=== PATIENT | female | born 1950 | race Caucasian/White ===

== ENCOUNTER 2016-11-26 11:14 | Emergency (ER) | payer BC, MEDICARE ==
--- NOTE | 2016-11-26 12:18 | Emergency Department Record ---
Anxiety - General Chief Complaint: Anxiety Stated Complaint: ANXIETY Time Seen by Provider: 11/26/16 11:55 Source: Patient Mode of Arrival: Ambulatory Limitations: No limitations - History of Present Illness Initial Comments: pt states she is either anxious or having hot flashes as she frequently feels hot. she states she has had a lot of funerals lately. Complaint: Anxiety Onset/Timin -: Week(s) Symptoms: Dry mouth, Other Place: Home Previous History of Same: Yes Severity: Moderate Quality: Constant Provoking factors: Emotional stress, Recent /illness of family member Improves With: Medication Associated symptoms: Other - Related Data Home Medications: Home Medications Medication Instructions Recorded Confirmed Last Taken Alprazolam [Xanax] 0.5 mg PO DAILY PRN 10/16/13 11/26/16 11/26/16 Ferrous Sulfate [Iron] 325 mg PO DAILY 10/16/13 11/26/16 11/26/16 Imipramine HCl [Tofranil] 100 mg PO QHS 10/16/13 11/26/16 11/25/16 Allergies/Adverse Reactions: Allergies Allergy/AdvReac Type Severity Reaction Status Date / Time No Known Drug Allergies Allergy Verified 11/26/16 11:17 Travel Screening - Travel/Exposure Within Last 30 Days Have you traveled within the last 30 days?: Yes Location Detail:: [place] - Travel/Exposure Within Last Year Have you traveled outside the [place] in the last year?: No - Additonal Travel Details Have you been exposed to anyone with a communicable illness?: No - Travel Symptoms Symptom Screening: None Review of Systems Reviewed: No additional complaints except as noted below Constitutional: Reports: As per HPI. Denies: Chills, Fever, Malaise, Night sweats, Weakness, Weight change Eyes: Reports: As per HPI. Denies: Eye discharge, Eye pain, Photophobia, Vision change ENT: Reports: As per HPI. Denies: Congestion, Dental pain, Ear pain, Epistaxis , Hearing loss, Throat pain Respiratory: Reports: As per HPI. Denies: Cough, Dyspnea, Hemoptysis, Stridor, Wheezes Cardiovascular: Reports: As per HPI. Denies: Arrhythmia, Chest pain, Dyspnea on exertion, Edema, Murmurs, Orthopnea, Palpitations, Paroxysmal nocturnal dyspnea, Rheumatic Fever, Syncope Endocrine: Reports: As per HPI. Denies: Fatigue, Heat or cold intolerance, Polydipsia, Polyuria Gastrointestinal: Reports: As per HPI. Denies: Abdominal pain, Constipation, Diarrhea, Hematemesis, Hematochezia, Melena, Nausea, Vomiting Genitourinary: Reports: As per HPI. Denies: Abnormal menses, Discharge, Dyspareunia, Dysuria, Frequency, Hematuria, Incontinence, Retention, Urgency Musculoskeletal: Reports: As per HPI. Denies: Arthralgia, Back pain, Gout, Joint swelling, Myalgia, Neck pain Skin: Reports: As per HPI. Denies: Bruising, Change in color, Change in hair/ nails, Lesions, Pruritus, Rash Neurological: Reports: As per HPI. Denies: Abnormal gait, Confusion, Headache, Numbness, Paresthesias, Seizure, Tingling, Tremors, Vertigo, Weakness Psychiatric: Reports: As per HPI. Denies: Anxiety, Auditory hallucinations, Depression, Homicidal thoughts, Suicidal thoughts, Visual hallucinations Hematological/Lymphatic: Reports: As per HPI. Denies: Anemia, Blood Clots, Easy bleeding, Easy bruising, Swollen glands Past Medical History - SOCIAL HISTORY Smoking Status: Never smoker Alcohol Use: None Drug Use: None - RESPIRATORY Hx Respiratory Disorders: No - CARDIOVASCULAR Hx Cardio Disorders: Yes Hx Irregular Heartbeat: Yes - NEURO Hx Neuro Disorders: No - GI Hx GI Disorders: No - Hx Genitourinary Disorders: No - ENDOCRINE Hx Endocrine Disorders: No - MUSCULOSKELETAL Hx Musculoskeletal Disorders: No - PSYCH Hx Psych Problems: No - HEMATOLOGY/ONCOLOGY Hx Hematology/Oncology Disorders: No Family Medical History Any Significant Family History?: Yes Hx Diabetes: Mother, Brother/Sister Hx Heart Disease: Father, Mother Hx HTN: Father Physical Exam - General General Appearance: Alert, Oriented x3, Cooperative, Mild distress - Head Head exam: Normal inspection - Eye Eye exam: Normal appearance, PERRL, EOMI, Scleral icterus Pupils: Normal accommodation - ENT ENT exam: Normal exam, Mucous membranes moist, Normal external ear exam, Normal orophraynx Ear exam: Normal external inspection. negative: External canal tenderness Nasal Exam: Normal inspection. negative: Discharge, Sinus tenderness Mouth exam: Normal external inspection, Tongue normal Teeth exam: Normal inspection. negative: Dental caries Throat exam: Normal inspection. negative: Tonsillar erythema, Tonsillar exudate - Neck Neck exam: Normal inspection, Full ROM. negative: Tenderness - Respiratory Respiratory exam: Normal lung sounds bilaterally. negative: Respiratory distress - Cardiovascular Cardiovascular Exam: Regular rate, Normal rhythm, Normal heart sounds - GI/Abdominal GI/Abdominal exam: Soft, Normal bowel sounds. negative: Tenderness - Rectal Rectal exam: Deferred - exam: Deferred - Extremities Extremities exam: Normal inspection, Full ROM, Normal capillary refill. negative: Tenderness - Back Back exam: Reports: Normal inspection, Full ROM. Denies: Muscle spasm, Rash noted, Tenderness - Neurological Neurological exam: Alert, CN II-XII intact, Normal gait, Oriented X3 - Psychiatric Psychiatric exam: Normal affect, Normal mood - Skin Skin exam: Dry, Intact, Normal color, Warm, Other (jaundice) Course Vital Signs 11/26/16 11:22 Temperature 98.7 F Pulse Rate 87 Respiratory 20 Rate Blood Pressure 127/66 Pulse Ox 98 - Reevaluation(s) Reevaluation #1: 11/26/16 13:54 pt told of high bilirubin and need for abd ct. she is refusing and leaving [facility]. pt told of importance and risks. she refuses to stay because she is anxious to go home. Reevaluation #2: 11/26/16 13:56 attempting to reach pts physician Medical Decision Making - Lab Data Result diagrams: 11/26/16 12:10 11/26/16 12:10 Disposition Disposition: Other Clinical Impression: Hyperbilirubinemia, Anxiety Disposition: Against Medical Advice Condition: (3) Guarded Instructions: Jaundice (ED) Additional Instructions: pt may return at any time. follow up immediately with family doctor. no tylenol or alcohol Forms: Patient Portal Access Quality - Quality Measures Quality Measures: N/A - Blood Pressure Screening Blood Pressure Classification: Pre-Hypertensive BP Reading Systolic Measurement: 127 Diastolic Measurement: 66 Screening for High Blood Pressure: < Normal BP, F/U Not Required > [G8783] Normal BP Follow-up Interventions: No follow-up required
[2016-11-26 12:21] LABS: BASO % 0.3 % (0-6); EOS % 2.7 % (0-6); GRAN % 68.1 % (47-80); HEMATOCRIT 30.2 % (35.0-47.0); HEMOGLOBIN 10.2 gm/dl (11.6-16.0); LYMPH % 20.4 % (16-45); MEAN CELL VOLUME 100.3 fl (81-97); MEAN CORPUSCULAR HGB CONC 33.8 g/dl (32-36); MONO % 8.5 % (0-9); PLATELET COUNT 329 K/uL (130-400); RED BLOOD COUNT 3.01 M/uL (3.80-5.40); RED CELL DISTRIBUTION WIDTH 12.7 % (11.5-14.5); WHITE BLOOD COUNT W/O DIFF 6.7 K/uL (4.2-12.2)
[2016-11-26 12:22] LABS: MEAN CORPUSCULAR HEMOGLOBIN 33.8 pg (27-33)
[2016-11-26 12:34] LABS: ALBUMIN 4.5 gm/dL (3.5-5.0); ALKALINE PHOSPHATASE 57 U/L (38-126); ALT/SGPT 40 U/L (9-52); ANION GAP 8.2 (7-16); AST/SGOT 16 U/L (14-36); BLOOD UREA NITROGEN 12 mg/dL (7-17); CARBON DIOXIDE 28.8 mmol/L (22-30); CREATININE 0.9 mg/dL (0.52-1.04); EST GLOMERULAR FILTRATION RATE > 60 ml/min; GLUCOSE,RANDOM 104 mg/dL (70-110); TOTAL PROTEIN 6.8 gm/dL (6.3-8.2)
[2016-11-26 12:47] LABS: TROPONIN I < 0.012 ng/mL (0.00-0.034)
[2016-11-26 13:04] LABS: THYROID STIMULATING HORMONE 2.03 uIU/ml (0.465-4.68)
--- NOTE | 2016-11-26 14:39 | Emergency Department Record ---
Anxiety - General Chief Complaint: Anxiety Stated Complaint: ANXIETY Time Seen by Provider: 11/26/16 11:55 Source: Patient Mode of Arrival: Ambulatory - History of Present Illness Onset/Timin -: Week(s) Symptoms: Dry mouth, Other Place: Home Previous History of Same: Yes Severity: Moderate Quality: Constant Provoking factors: Emotional stress, Recent /illness of family member Improves With: Medication Associated symptoms: Other - Related Data Home Medications: Home Medications Medication Instructions Recorded Confirmed Last Taken Alprazolam [Xanax] 0.5 mg PO DAILY PRN 10/16/13 11/26/16 11/26/16 Ferrous Sulfate [Iron] 325 mg PO DAILY 10/16/13 11/26/16 11/26/16 Imipramine HCl [Tofranil] 100 mg PO QHS 10/16/13 11/26/16 11/25/16 Allergies/Adverse Reactions: Allergies Allergy/AdvReac Type Severity Reaction Status Date / Time No Known Drug Allergies Allergy Verified 11/26/16 11:17 Travel Screening - Travel/Exposure Within Last 30 Days Have you traveled within the last 30 days?: Yes Location Detail:: [place] - Travel/Exposure Within Last Year Have you traveled outside the [place] in the last year?: No - Additonal Travel Details Have you been exposed to anyone with a communicable illness?: No - Travel Symptoms Symptom Screening: None Review of Systems Constitutional: Reports: As per HPI. Denies: Chills, Fever, Malaise, Night sweats, Weakness, Weight change Eyes: Reports: As per HPI. Denies: Eye discharge, Eye pain, Photophobia, Vision change ENT: Reports: As per HPI. Denies: Congestion, Dental pain, Ear pain, Epistaxis , Hearing loss, Throat pain Respiratory: Reports: As per HPI. Denies: Cough, Dyspnea, Hemoptysis, Stridor, Wheezes Cardiovascular: Reports: As per HPI. Denies: Arrhythmia, Chest pain, Dyspnea on exertion, Edema, Murmurs, Orthopnea, Palpitations, Paroxysmal nocturnal dyspnea, Rheumatic Fever, Syncope Endocrine: Reports: As per HPI. Denies: Fatigue, Heat or cold intolerance, Polydipsia, Polyuria Gastrointestinal: Reports: As per HPI. Denies: Abdominal pain, Constipation, Diarrhea, Hematemesis, Hematochezia, Melena, Nausea, Vomiting Genitourinary: Reports: As per HPI. Denies: Abnormal menses, Discharge, Dyspareunia, Dysuria, Frequency, Hematuria, Incontinence, Retention, Urgency Musculoskeletal: Reports: As per HPI. Denies: Arthralgia, Back pain, Gout, Joint swelling, Myalgia, Neck pain Skin: Reports: As per HPI. Denies: Bruising, Change in color, Change in hair/ nails, Lesions, Pruritus, Rash Neurological: Reports: As per HPI. Denies: Abnormal gait, Confusion, Headache, Numbness, Paresthesias, Seizure, Tingling, Tremors, Vertigo, Weakness Psychiatric: Reports: As per HPI. Denies: Anxiety, Auditory hallucinations, Depression, Homicidal thoughts, Suicidal thoughts, Visual hallucinations Hematological/Lymphatic: Reports: As per HPI. Denies: Anemia, Blood Clots, Easy bleeding, Easy bruising, Swollen glands Past Medical History - SOCIAL HISTORY Smoking Status: Never smoker Alcohol Use: None Drug Use: None - RESPIRATORY Hx Respiratory Disorders: No - CARDIOVASCULAR Hx Cardio Disorders: Yes Hx Irregular Heartbeat: Yes - NEURO Hx Neuro Disorders: No - GI Hx GI Disorders: No - Hx Genitourinary Disorders: No - ENDOCRINE Hx Endocrine Disorders: No - MUSCULOSKELETAL Hx Musculoskeletal Disorders: No - PSYCH Hx Psych Problems: No - HEMATOLOGY/ONCOLOGY Hx Hematology/Oncology Disorders: No Family Medical History Any Significant Family History?: Yes Hx Diabetes: Mother, Brother/Sister Hx Heart Disease: Father, Mother Hx HTN: Father Physical Exam - General Limitations: No limitations Course Vital Signs 11/26/16 11:22 Temperature 98.7 F Pulse Rate 87 Respiratory 20 Rate Blood Pressure 127/66 Pulse Ox 98 - Reevaluation(s) Reevaluation #1: 11/26/16 14:39 d/w dr del valle Medical Decision Making - Lab Data Result diagrams: 11/26/16 12:10 11/26/16 12:10 Lab Results 11/26/16 11/26/16 11/26/16 Range/Units 12:10 12:10 12:10 WBC 6.7 (4.2-12.2) K/uL RBC 3.01 L (3.80-5.40) M/uL Hgb 10.2 L (11.6-16.0) gm/dl Hct 30.2 L (35.0-47.0) % MCV 100.3 H (81-97) fl MCH 33.8 H (27-33) pg MCHC 33.8 (32-36) g/dl RDW 12.7 (11.5-14.5) % Plt Count 329 (130-400) K/uL MPV 9.0 (7.4-10.4) fl Gran % 68.1 (47-80) % Lymphocytes % 20.4 (16-45) % Monocytes % 8.5 (0-9) % Eosinophils % 2.7 (0-6) % Basophils % 0.3 (0-6) % Sodium 142 (136-145) mmol/L Potassium 3.7 (3.5-5.1) mmol/L Chloride 105 (98-107) mmol/L Carbon Dioxide 28.8 (22-30) mmol/L Anion Gap 8.2 (7-16) BUN 12 (7-17) mg/dL Creatinine 0.9 (0.52-1.04) mg/dL Estimated GFR > 60 ml/min Random Glucose 104 (70-110) mg/dL Calcium 9.6 (8.5-10.1) mg/dL Total Bilirubin 4.30 H (0.2-1.3) mg/dL AST 16 (14-36) U/L ALT 40 (9-52) U/L Alkaline Phosphatase 57 (38-126) U/L Troponin I < 0.012 (0.00-0.034) ng/mL Total Protein 6.8 (6.3-8.2) gm/dL Albumin 4.5 (3.5-5.0) gm/dL Globulin 2.3 (1.4-4.8) gm/dL Albumin/Globulin Ratio 2.0 H (1.1-1.8) Lipase 54 (23-300) U/L TSH 2.03 (0.465-4.68) uIU/ml Urine Opiates Screen Ur Oxycodone Screen Urine Methadone Screen Ur Propoxyphene Screen Ur Barbituates Screen Ur Tricyclics Screen Ur Phencyclidine Scrn Ur Amphetamine Screen U Methamphetamines Scrn U Benzodiazepines Scrn Urine Cocaine Screen Urine Cannabis Screen 11/26/16 Range/Units 14:37 WBC (4.2-12.2) K/uL RBC (3.80-5.40) M/uL Hgb (11.6-16.0) gm/dl Hct (35.0-47.0) % MCV (81-97) fl MCH (27-33) pg MCHC (32-36) g/dl RDW (11.5-14.5) % Plt Count (130-400) K/uL MPV (7.4-10.4) fl Gran % (47-80) % Lymphocytes % (16-45) % Monocytes % (0-9) % Eosinophils % (0-6) % Basophils % (0-6) % Sodium (136-145) mmol/L Potassium (3.5-5.1) mmol/L Chloride (98-107) mmol/L Carbon Dioxide (22-30) mmol/L Anion Gap (7-16) BUN (7-17) mg/dL Creatinine (0.52-1.04) mg/dL Estimated GFR ml/min Random Glucose (70-110) mg/dL Calcium (8.5-10.1) mg/dL Total Bilirubin (0.2-1.3) mg/dL AST (14-36) U/L ALT (9-52) U/L Alkaline Phosphatase (38-126) U/L Troponin I (0.00-0.034) ng/mL Total Protein (6.3-8.2) gm/dL Albumin (3.5-5.0) gm/dL Globulin (1.4-4.8) gm/dL Albumin/Globulin Ratio (1.1-1.8) Lipase (23-300) U/L TSH (0.465-4.68) uIU/ml Urine Opiates Screen Cancelled Ur Oxycodone Screen Cancelled Urine Methadone Screen Cancelled Ur Propoxyphene Screen Cancelled Ur Barbituates Screen Cancelled Ur Tricyclics Screen Cancelled Ur Phencyclidine Scrn Cancelled Ur Amphetamine Screen Cancelled U Methamphetamines Scrn Cancelled U Benzodiazepines Scrn Cancelled Urine Cocaine Screen Cancelled Urine Cannabis Screen Cancelled Disposition Clinical Impression: Hyperbilirubinemia, Anxiety Disposition: Against Medical Advice Condition: (3) Guarded Instructions: Jaundice (ED) Additional Instructions: pt may return at any time. follow up immediately with family doctor. no tylenol or alcohol Forms: Patient Portal Access Quality - Quality Measures Quality Measures: N/A - Blood Pressure Screening Blood Pressure Classification: Pre-Hypertensive BP Reading Systolic Measurement: 127 Diastolic Measurement: 66 Screening for High Blood Pressure: < Normal BP, F/U Not Required > [G8783] Normal BP Follow-up Interventions: No follow-up required
== END 2016-11-26 14:07 | disposition left against medical advice (07) ==
LOC: ER 11:14
DX: E80.6 Other disorders of bilirubin metabolism (principal); F41.1 Generalized anxiety disorder; F43.0 Acute stress reaction; Z79.899 Other long term (current) drug therapy
CPT/HCPCS: 99283 ×2; 83690; 85025; 84484; 80053; 84443; G0480; 80329

== ENCOUNTER 2018-01-28 11:51 | Emergency (ER) | payer MEDICARE, BC ==
[2018-01-28] MEDS ORDERED: LORAZEPAM 2 MG/ML VIAL IV ONE (12:13)
--- NOTE | 2018-01-28 12:18 | Emergency Department Record ---
Anxiety - General Chief Complaint: Anxiety Stated Complaint: ANXIETY/SOB/CHEST DISCOMFORT Time Seen by Provider: 01/28/18 12:04 Source: Patient Mode of Arrival: Ambulatory Limitations: No limitations - History of Present Illness Initial Comments: The patient is here to obtain a prescription for anxiety medicine. She has been very anxious and depressed lately and was in [facility] for 6 days a month ago. Today she went back there for admission and was sent home to get a script from her PCP because they were unable to admit her there. Due to the PCP's office being unable to see them the patient and came to the ER here at [facility]. The patient is complaining of anxiety, insomnia, and palpitations. She has had vague chest discomfort off and on with the anxiety which has been a chronic problem. The patient also has had minor ISSA at times but presently denies that. She also denies any pleuritic pain. The patient and both state the patient had been on Xanax for a long time for these issues but it was stopped last month at [facility]. MD Complaint: Anxiety, Heart racing, Shortness of breath Onset/Timin -: Hour(s) Symptoms: Chest pain, Dyspnea, Other Place: Home Previous History of Same: Yes Severity: Mild Quality: Intermittant, Similar to prior episodes Provoking factors: Other Improves With: Rest, Sleep Worsens With: Other Associated symptoms: Chest pain - Related Data Home Medications: Home Medications Medication Instructions Recorded Confirmed Last Taken Nortriptyline HCl 50 mg PO QPM 01/28/18 01/28/18 Unknown Omeprazole Magnesium [Prilosec Otc] 20 mg PO DAILY 01/28/18 01/28/18 Unknown Allergies/Adverse Reactions: Allergies Allergy/AdvReac Type Severity Reaction Status Date / Time No Known Drug Allergies Allergy Verified 01/28/18 12:07 Travel Screening - Travel/Exposure Within Last 30 Days Have you traveled within the last 30 days?: No - Travel/Exposure Within Last Year Have you traveled outside the [place] in the last year?: No - Additonal Travel Details Have you been exposed to anyone with a communicable illness?: No - Travel Symptoms Symptom Screening: None Review of Systems Constitutional: Denies: Chills, Fever Eyes: Denies: Eye discharge ENT: Denies: Congestion Respiratory: Reports: Dyspnea. Denies: Cough Cardiovascular: Reports: Palpitations. Denies: Arrhythmia, Chest pain, Dyspnea on exertion Endocrine: Denies: Fatigue Gastrointestinal: Denies: Nausea Genitourinary: Denies: Dysuria Musculoskeletal: Denies: Back pain Psychiatric: Reports: Anxiety Past Medical History - SOCIAL HISTORY Smoking Status: Never smoker Alcohol Use: None Drug Use: None - RESPIRATORY Hx Respiratory Disorders: No - CARDIOVASCULAR Hx Cardio Disorders: Yes Hx Irregular Heartbeat: Yes - NEURO Hx Neuro Disorders: No - GI Hx GI Disorders: No - Hx Genitourinary Disorders: No - ENDOCRINE Hx Endocrine Disorders: No - MUSCULOSKELETAL Hx Musculoskeletal Disorders: No - PSYCH Hx Psych Problems: Yes Hx Anxiety: Yes - HEMATOLOGY/ONCOLOGY Hx Hematology/Oncology Disorders: No Family Medical History Any Significant Family History?: Yes Hx Diabetes: Mother, Brother/Sister Hx Heart Disease: Father, Mother Hx HTN: Father Physical Exam - General General Appearance: Alert, Oriented x3, Cooperative, No acute distress - Head Head exam: Atraumatic, Normocephalic, Normal inspection - Eye Eye exam: Normal appearance, PERRL, EOMI - ENT Throat exam: Normal inspection. negative: Tonsillar erythema, Tonsillar exudate - Neck Neck exam: Normal inspection, Full ROM. negative: Tenderness - Respiratory Respiratory exam: Normal lung sounds bilaterally. negative: Respiratory distress - Cardiovascular Cardiovascular Exam: Regular rate, Normal rhythm, Normal heart sounds. negative : Diastolic murmur, Systolic murmur - GI/Abdominal GI/Abdominal exam: Soft, Normal bowel sounds. negative: Tenderness - Extremities Extremities exam: Normal inspection, Full ROM, Normal capillary refill. negative: Calf tenderness, Pedal edema, Tenderness - Neurological Neurological exam: Alert, Normal gait. negative: Abnormal gait, Motor sensory deficit - Psychiatric Psychiatric exam: Anxious Course Vital Signs 01/28/18 11:57 Temperature 98.8 F Pulse Rate 85 Respiratory 20 Rate Blood Pressure 130/57 Pulse Ox 100 - Reevaluation(s) Reevaluation #1: The patient is doing a lot better at this time. She states her anxiety is improved and she denies any palpitations, SOB, or ISSA. I explained to her that her test results so far do not demonstrate any new changes. I did discuss her elevated Bilirubin which is not a new thing for her. She is instructed to see her PCP for recheck later this week and further testing. 01/28/18 12:58 Reevaluation #2: The patient is doing a lot better presently. I again did discuss the elevated bilirubin and did offer to order an abdominal CT but the patient is refusing. I also offered to keep her here at [facility] to have her heart fully evaluated with an EST and Echo but she is also refusing that. I explained that by NOT doing those tests we could be missing serious cardiac and liver pathology that could lead to an GA, Stroke, being disabled, Cancer and . The patient understands the risks and will see her PCP next week to have further evaluation of those issues. 01/28/18 13:03 Reevaluation #3: I again did discuss the need for admission for cardiac evaluation and the patient is again refusing. She states she had all those tests done in [place] 2 months ago and does not want to stay here for them. She again fully understands the risks of refusing and accepts the risks. She does have an appointment at [facility] at 7:30 am tomorrow with her Psychiatrist. 01/28/18 13:09 Medical Decision Making - Data Complexity MDM Data: Labs Ordered and/or Reviewed, X-Ray Ordered and/or Reviewed, EKG Ordered and/or Reviewed - Lab Data Result diagrams: 01/28/18 10:10 01/28/18 10:10 - EKG Data -: EKG Interpreted by Me EKG: No Acute Changes, Normal EKG - Radiology Data Radiology results: Report reviewed (CXR: neg) Disposition Disposition: Discharge Clinical Impression: Anxiety Disposition: Home, Self-Care Condition: (2) Stable Instructions: Social Anxiety Disorder (ED) Additional Instructions: Please take the Xanax as directed and please see your Psychiatrist in the morning as planned. Please also see your family doctor next week to have your anemia and elevated bilirubin evaluated further. Please return to the ER for any worsening pain, Shortness of breath, difficulty breathing or fever. Forms: Patient Portal Access Time of Disposition: 13:12 Quality - Quality Measures Quality Measures: N/A - Blood Pressure Screening View Details: Yes Does Patient Have Any of the Following: No Blood Pressure Classification: Pre-Hypertensive BP Reading Systolic Measurement: 130 Diastolic Measurement: 57 Screening for High Blood Pressure: < Pre-Hypertensive BP, F/U Documented > [ G8950] Pre-Hypertensive Follow-up Interventions: Referral to alternative/primary care provider.
[2018-01-28 12:27] LABS: BASO % 0.1 % (0-6); EOS % 0.6 % (0-6); GRAN % 74.3 % (47-80); HEMATOCRIT 30.5 % (35.0-47.0); HEMOGLOBIN 10.2 gm/dl (11.6-16.0); LYMPH % 19.3 % (16-45); MEAN CELL VOLUME 106.6 fl (81-97); MEAN CORPUSCULAR HEMOGLOBIN 35.6 pg (27-33); MEAN CORPUSCULAR HGB CONC 33.4 g/dl (32-36); MONO % 5.7 % (0-9); PLATELET COUNT 323 K/uL (130-400); RED BLOOD COUNT 2.86 M/uL (3.80-5.40); RED CELL DISTRIBUTION WIDTH 14.2 % (11.5-14.5); WHITE BLOOD COUNT W/O DIFF 6.7 K/uL (4.2-12.2)
[2018-01-28 12:41] LABS: BLOOD UREA NITROGEN 22 mg/dL (8-23); CREATININE 0.5 mg/dL (0.5-0.9); EST GLOMERULAR FILTRATION RATE > 60 mL/min; TOTAL PROTEIN 6.8 g/dL (6.6-8.7)
[2018-01-28 12:43] LABS: GLUCOSE,RANDOM 110 mg/dL (74-109)
[2018-01-28 12:46] LABS: ALKALINE PHOSPHATASE 55 U/L (35-104); ALT/SGPT 16 U/L (<33); AST/SGOT 14 U/L (10.0-35.0); BILIRUBIN,DIRECT 0.4 mg/dL (0-0.3); CREATINE PHOSPHOKINASE 52 U/L (26-192)
[2018-01-28 12:49] LABS: CKMB 2.1 ng/mL (<3.77)
[2018-01-28 12:57] LABS: THYROID STIMULATING HORMONE 2.75 uIU/mL (0.270-4.20)
[2018-01-28] MEDS ORDERED: ALPRAZOLAM 0.25 MG TABLET PO ONE ×2 (13:06)
--- NOTE | 2018-01-31 09:46 | RADIOLOGY REPORT ---
EXAM: CHEST, TWO VIEWS HISTORY: DIFFICULTY IN BREATHING, SHORTNESS OF BREATH, CHEST PAIN. TECHNIQUE: PA and lateral views of the chest were obtained. Comparison: None. FINDINGS: The heart size is normal. No definite acute infiltrate seen. No pleural effusion or pneumothorax evident. The lungs do appear mildly hyperinflated. IMPRESSION: 1. THE LUNGS APPEAR MILDLY HYPERINFLATED. 2. NO DEFINITE ACUTE INFILTRATE SEEN. JOB NUMBER: [id number] MTDD
== END 2018-01-28 13:20 | disposition home or self-care (01) ==
LOC: ER 11:51
DX: F41.9 Anxiety disorder, unspecified (principal); R07.89 Other chest pain; R06.02 Shortness of breath; E80.6 Other disorders of bilirubin metabolism
CPT/HCPCS: 99284 ×2; 96374; 82550; 85025; 80076; 82553; 80048; 84443; 84484; 71046; 93005; 93010; J2060

== ENCOUNTER 2018-02-17 00:41 | Emergency (ER) | payer MEDICARE, BC ==
[2018-02-17] MEDS ORDERED: LORAZEPAM 2 MG/ML VIAL IV ONE (01:33)
[2018-02-17] MEDS ORDERED: QUETIAPINE FUMARATE 25 MG TABLET PO ONE (01:39)
[2018-02-17 01:48] LABS: BASO % 0.3 % (0-6); EOS % 0.9 % (0-6); GRAN % 76.2 % (47-80); HEMATOCRIT 28.2 % (35.0-47.0); HEMOGLOBIN 9.3 gm/dl (11.6-16.0); LYMPH % 13.9 % (16-45); MEAN CELL VOLUME 106.4 fl (81-97); MEAN PLATELET VOLUME 8.8 fl (7.4-10.4); MONO % 8.7 % (0-9); PLATELET COUNT 364 K/uL (130-400); RED BLOOD COUNT 2.65 M/uL (3.80-5.40); RED CELL DISTRIBUTION WIDTH 12.5 % (11.5-14.5); WHITE BLOOD COUNT W/O DIFF 7.6 K/uL (4.2-12.2)
--- NOTE | 2018-02-17 01:51 | Emergency Department Record ---
History of Present Illness - General Chief Complaint: Confusion Stated Complaint: WITHDRAWL Time Seen by Provider: 02/17/18 01:03 Source: Patient, Family Mode of Arrival: Ambulatory Limitations: Altered mental status - History of Present Illness Initial Comments: pt brought in by because she has not slept and has been pacing and agitated for 2 days. she is confused. she [facility] 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 MD Complaint: Altered mental status, Confusion Onset/Timin -: Days(s) Consistency: Constant Context: Change in medication, Drug abuse Associated Symptoms: Denies other symptoms - [place] Coma Scale Eye Response: (4) Open spontaneously Motor Response: (6) Obeys commands Verbal Response: (5) Oriented Christian Total: 15 - Symptoms of Stroke Symptoms of stroke: Onset of Confusion, Unable to Think Clearly - Related Data Home Medications Medication Instructions Recorded Confirmed Last Taken Gabapentin [Neurontin] 100 mg PO TID 02/17/18 02/17/18 Unknown Lorazepam [Ativan] 1 mg PO TID PRN 02/17/18 02/17/18 Unknown Quetiapine Fumarate [Seroquel] 50 mg PO BID 02/17/18 02/17/18 Unknown Ranitidine HCl [Zantac] 150 mg PO BID 02/17/18 02/17/18 Unknown Allergies Allergy/AdvReac Type Severity Reaction Status Date / Time No Known Drug Allergies Allergy Verified 01/28/18 12:07 Travel Screening - Travel/Exposure Within Last 30 Days Have you traveled within the last 30 days?: No - Travel Symptoms Symptom Screening: None Review of Systems ROS unobtainable: Due to mental status Past Medical History - SOCIAL HISTORY Smoking Status: Never smoker - RESPIRATORY Hx Respiratory Disorders: No - CARDIOVASCULAR Hx Cardio Disorders: Yes Hx Irregular Heartbeat: Yes - NEURO Hx Neuro Disorders: No - GI Hx GI Disorders: No - Hx Genitourinary Disorders: No - ENDOCRINE Hx Endocrine Disorders: No - MUSCULOSKELETAL Hx Musculoskeletal Disorders: No - PSYCH Hx Psych Problems: Yes Hx Anxiety: Yes - HEMATOLOGY/ONCOLOGY Hx Hematology/Oncology Disorders: No Family Medical History Any Significant Family History?: Yes Hx Diabetes: Mother, Brother/Sister Hx Heart Disease: Father, Mother Hx HTN: Father Physical Exam - General General Appearance: Alert, Oriented x3, Moderate distress - Head Head exam: Normal inspection - Eye Eye exam: Normal appearance, PERRL, EOMI Pupils: Normal accommodation - ENT ENT exam: Normal exam, Mucous membranes moist, Normal external ear exam, Normal orophraynx Ear exam: Normal external inspection. negative: External canal tenderness Nasal Exam: Normal inspection. negative: Discharge, Sinus tenderness Mouth exam: Normal external inspection, Tongue normal Teeth exam: Normal inspection. negative: Dental caries Throat exam: Normal inspection. negative: Tonsillar erythema, Tonsillar exudate - Neck Neck exam: Normal inspection, Full ROM. negative: Tenderness - Respiratory Respiratory exam: Normal lung sounds bilaterally. negative: Respiratory distress - Cardiovascular Cardiovascular Exam: Normal rhythm, Normal heart sounds, Tachycardia - GI/Abdominal GI/Abdominal exam: Soft, Normal bowel sounds. negative: Tenderness - Rectal Rectal exam: Deferred - exam: Deferred - Extremities Extremities exam: Normal inspection, Full ROM, Normal capillary refill. negative: Tenderness - Back Back exam: Reports: Normal inspection, Full ROM. Denies: Muscle spasm, Rash noted, Tenderness - Neurological Neurological exam: Altered, CN II-XII intact, Normal gait, Oriented X3 - Psychiatric Psychiatric exam: Agitated, Anxious, Other (pt constantly pacing room agitated saying "dont send me home") - Skin Skin exam: Dry, Intact, Normal color, Warm Course Vital Signs 02/17/18 00:53 Temperature 98.2 F Pulse Rate 102 H Respiratory 24 Rate Blood Pressure 157/74 Pulse Ox 98 Medical Decision Making - Lab Data Result diagrams: 02/17/18 01:40 02/17/18 01:40 Disposition Disposition: Transfer Clinical Impression: Agitation, Anxiety Depression Qualifiers: Depression Type: major depressive disorder Major depression recurrence: recurrent Active/Remission status: currently active Major depression episode severity: severe Psychotic features: without psychotic features Qualified Code(s ): F33.2 - Major depressive disorder, recurrent severe without psychotic features Disposition: Acute Care Hospital Transfer Transfer To: [facility] Reason For Transfer: psych Accepting Physician: psychchiatrist Time Discussed w/Accepting Physician: 07:48 Forms: Patient Portal Access Quality - Quality Measures Quality Measures: N/A - Blood Pressure Screening Does Patient Have Any of the Following: No Blood Pressure Classification: Hypertensive Reading Systolic Measurement: 157 Diastolic Measurement: 74 Screening for High Blood Pressure: < First Hypertensive BP, F/U Documented > [ [id number]] First Hypertensive Follow-up Interventions: Follow-up with rescreen GT 1 day and LT 4 weeks.
[2018-02-17 02:00] LABS: BLOOD UREA NITROGEN 21 mg/dL (8-23)
[2018-02-17 02:01] LABS: CREATININE 0.6 mg/dL (0.5-0.9); EST GLOMERULAR FILTRATION RATE > 60 mL/min; TOTAL PROTEIN 6.5 g/dL (6.6-8.7)
[2018-02-17 02:03] LABS: GLUCOSE,RANDOM 129 mg/dL (74-109)
[2018-02-17 02:06] LABS: ALB/GLOB RATIO 2.4 (1.1-1.8); ALBUMIN 4.6 g/dL (4.0-5.0); ALKALINE PHOSPHATASE 65 U/L (35-104); ALT/SGPT 11 U/L (<33); AST/SGOT 11 U/L (10.0-35.0)
[2018-02-17 02:16] LABS: THYROID STIMULATING HORMONE 3.88 uIU/mL (0.270-4.20)
[2018-02-17 02:29] LABS: URINE APPEARANCE CLOUDY; URINE BILIRUBIN NEGATIVE (NEGATIVE); URINE BLOOD SMALL (NEGATIVE); URINE COLOR YELLOW; URINE GLUCOSE (UA) NEGATIVE (NEGATIVE); URINE KETONE NEGATIVE (NEGATIVE); URINE LEUKOCYTE ESTERASE TRACE (NEGATIVE); URINE NITRITE NEGATIVE (NEGATIVE); URINE PROTEIN NEGATIVE (NEGATIVE); URINE UROBILINOGEN 0.2 E.U./dL (0.20 - 1.00)
[2018-02-17 02:33] LABS: AMPHETAMINE SCREEN URINE NOT DETECTED; BARBITURATE SCREEN URINE NOT DETECTED; BENZODIAZEPINE SCREEN URINE NOT DETECTED; COCAINE SCREEN URINE NOT DETECTED; METHADONE SCREEN URINE NOT DETECTED; METHAMPHETAMINE SCREEN NOT DETECTED; OPIATE SCREEN URINE NOT DETECTED; OXYCODONE SCREEN URINE NOT DETECTED; PHENCYCLIDINE SCREEN URINE NOT DETECTED; PROPOXYPHENE SCREEN URINE NOT DETECTED; THC SCREEN URINE NOT DETECTED; TRICYCLIC ANTIDEPRESSANT SCRN DETECTED; URINE EPITHELIAL CELLS TNTC (FEW); URINE RBC 0 - 2 (NONE SEEN); URINE WBC 0 - 2 (0-2/hpf)
[2018-02-17 02:34] LABS: URINE BACTERIA 1+
[2018-02-17] MEDS ORDERED: 0.9 % SODIUM CHLORIDE 1,000 ML BAG IV ONE (03:06)
--- NOTE | 2018-02-18 14:50 | CT SCAN REPORT ---
EXAM: NONCONTRAST CT OF THE HEAD HISTORY: ALTERED MENTAL STATUS. TECHNIQUE: Noncontrast CT of the head was obtained. Comparison: None. FINDINGS: No midline shift, mass effect, or abnormal intra or extraaxial fluid collection. No cerebral edema, focal mass or intracranial hemorrhage detected. Mild diffuse prominence of the ventricles and cortical sulci, likely age related cerebral volume loss. The basal cisterns are not effaced. No evidence of a displaced calvarial fracture on bone window images. Small left maxillary sinus polyp or retention cyst. IMPRESSION: 1. NO ACUTE INTRACRANIAL FINDINGS. 2. LIKELY CHRONIC CHANGES INCLUDING MILD DIFFUSE CEREBRAL VOLUME LOSS AND CHRONIC SMALL VESSEL ISCHEMIC WHITE MATTER DISEASE. JOB NUMBER: [id number] MTDD
== END 2018-02-17 09:45 | disposition short-term general hospital (02) ==
LOC: ER 00:41
DX: F33.2 Major depressive disorder, recurrent severe without psychotic features (principal); R45.1 Restlessness and agitation; F41.9 Anxiety disorder, unspecified; R41.82 Altered mental status, unspecified
CPT/HCPCS: 70450; 80053; 80305; 81001; 84443; 85025; 93005; 93010; 96374; 99285; J7030